=== PATIENT | female | born 2000 | race Two or more races ===

== ENCOUNTER 2025-05-06 18:49 | Emergency (ER) | payer OTHER ==
[~2025-05-06] VITALS: Ht 157.5 cm; Wt 61.2 kg
[2025-05-06] MEDS ORDERED: VOLTAREN ARTHRI20 GM TOP (21:49)
== END 2025-05-06 21:55 | disposition home or self-care (01) ==
LOC: ER 19:42
DX: M62.838 Other muscle spasm (principal)